=== PATIENT | female | born 1995 | race Caucasian/White ===

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

== ENCOUNTER 2017-03-31 15:29 | Emergency (ER) | payer BC ==
[~2017-03-31] VITALS: Ht 165.1 cm; Wt 74.0 kg
[2017-03-31 16:03] VITALS: TEMP 36.9; Ht 165.1 cm; Wt 74.0 kg
[2017-03-31] MEDS ORDERED: ALBU18002 INH (16:32)
[2017-03-31] MEDS ORDERED: IPRASOL4 INH (16:32)
[2017-03-31] MEDS ORDERED: BCPILLS PO (16:32)
[2017-03-31 17:24] LABS: ALBUMIN 4.1 gm/dl (3.4-5.0); CALCIUM 9.5 mg/dl (8.5-10.1); CREATININE 0.81 mg/dl (0.60-1.20); POTASSIUM 3.4 mmol/L (3.5-5.1)
[2017-03-31 17:27] LABS: TOTAL PROTEIN 8.4 gm/dl (6.4-8.2)
--- NOTE | 2017-03-31 17:44 | EMERGENCY ROOM VISIT NOTE ---
History First contact with patient: 16:13 Chief Complaint: ABDOMINAL PAIN Stated Complaint: POSSIBLE GALL STONE, LIGHTHEADDED Nursing Triage Summary: Patient presents to triage via wheelchair, states "My stomach is really hurting. I thought I was going to pass out today. I got blood work across the street just a little bit ago. I have been having issues for 2-3 weeks now. I was at Urgent Care and they started me on Zofran and Prilosec. Honey was concerned that I may be having gallbladder issues. I am scheduled for an ultrasound on Thursday." Patient admits to vomiting and nausea with the pain which comes and goes. History of Present Illness The patient is a 21 year old female who presents to the Emergency Room with complaints of right upper quadrant abdominal pain associated with nausea and vomiting for a few weeks. Patient states she has been unable to tolerate foods , but has been tolerating liquids okay. She went to [facility] on the , where she was diagnosed with a possible urinary tract infection. She states she received a phone call later on and was told that the culture was negative. She states at that time, she was started on Zofran and Prilosec for her symptoms , which she states did help a bit. Patient states despite these medications, she continues to vomit after eating. She was seen by her primary care provider today who recommended she have blood work and an ultrasound completed. She went to the lab, and became presyncopal when her labs were being drawn. At that time, she states she had some worsening right upper quadrant abdominal pain , and her father became concerned and did not want her waiting for Thursday to have the ultrasound performed. The patient's father states he told her she was coming here, as he felt that her symptoms are too bad to wait until the end of the week. The patient states her symptoms have been pretty consistent over the past 3-4 weeks, however they were severe today. The pain is worse with moving and food. She describes the pain as like a twisting sensation in her stomach. She denies any diarrhea, constipation, fever, recent illness, upper respiratory infection symptoms, cough, or other associated symptoms. The patient states her last menstrual period was February 16. She is on oral control pills, but is sexually active. She does have a history of irregular periods. Review of Systems A complete 10 point review of systems was reviewed with the patient with pertinent positives and negatives as per history of present illness. All else were negative. Past Medical/Surgical History None Social History Smoking Status: Never Smoker Current/Historical Medications Scheduled Control Pills ( Control Pills), 1 TAB PO DAILY Cephalexin Monohydrate (Keflex), 500 MG PO BID Scheduled PRN Albuterol Sulfate (Proair Respiclick), 1 PUFF INH DAILY PRN for SOB/Wheezing Ipratropium-Albuterol (Duoneb), 1 TREATMENT INH Q4H PRN for SOB/Wheezing Physical Exam Vital Signs Date Time Temp Pulse Resp B/P (MAP) Pulse Ox O2 Delivery O2 Flow Rate FiO2 03/31/17 16:54 61 18 118/74 100 Room Air 03/31/17 16:03 36.9 70 16 110/61 100 Room Air Physical Exam VITALS: Vitals are noted on the nurse's note and reviewed by myself. Vital signs stable. GENERAL: This is a 21-year-old female, in no acute distress, nondiaphoretic, well-developed well-nourished. SKIN: The skin was without rashes, erythema, edema, or bruising. There is no tenting of the skin. Capillary reflex less than 2 seconds. HEAD: Normocephalic atraumatic. EARS: External auditory canals clear, tympanic membranes pearly lopez without erythema or effusion bilaterally. EYES: Pupils equal round and reactive to light and accommodation. Conjunctivae without injection, sclerae without icterus. Extraocular movements intact. NOSE: Patent, turbinates without inflammation or discharge. No sinus tenderness. MOUTH: Mucous membranes moist. Tonsils are not enlarged. Pharynx without erythema or exudate. Uvula midline. Airway patent. Tongue does not deviate. NECK: Supple without nuchal rigidity. No lymphadenopathy. No thyromegaly. Cervical spine is nontender. No JVD. HEART: Regular rate and rhythm without murmurs gallops or rubs. LUNGS: Clear to auscultation bilaterally without wheezes, rales or rhonchi. No dullness to percussion. No retractions or accessory muscle use. ABDOMEN: Positive bowel sounds x 4. Normal tympanic percussion. Soft, without masses or organomegaly. White sign positive. The patient has guarding throughout examination. She does have some suprapubic tenderness. No rebound tenderness. No CVA tenderness bilaterally MUSCULOSKELETAL: No muscle atrophy, erythema, or edema noted. Full range of motion without joint tenderness in all extremities. No tenderness to palpation. Normal gait. Strength 5/5 throughout. NEURO: Patient was alert and oriented to person place and time. Normal sensation to light and sharp touch. Deep tendon reflexes 2+ throughout. No focal neurological deficits. Medical Decision & Procedures ER Provider Diagnostic Interpretation: ABDOMEN LIMITED (US) HISTORY: 21 years-old Female RUQ pain acute right upper quadrant abdominal pain COMPARISON: None available TECHNIQUE: Multiple real-time sonographic images of the abdominal right upper quadrant were obtained assessing grayscale appearance and color flow FINDINGS: Pancreas appears unremarkable. Distal body and tail obscured by bowel gas. There is a 1.5 x 1.0 x 0.7 cm echogenic lesion of the left hepatic lobe without internal vascularity identified. The liver is otherwise unremarkable. No intrahepatic biliary ductal dilation. Common bile duct is normal, 2 mm. Gallbladder is within normal limits without cholelithiasis, wall thickening or pericholecystic fluid. Imaged right kidney is unremarkable without hydronephrosis. IMPRESSION: 1. Unremarkable sonographic appearance of the gallbladder without cholelithiasis or sonographic evidence of acute cholecystitis. 2. No biliary ductal dilation. 3. 1.5 cm echogenic lesion of the left hepatic lobe is nonspecific however statistically favors a hepatic hemangioma. Laboratory Results 03/31/17 16:50 Red Blood Count 4.57, Mean Corpuscular Volume 85.1, Mean Corpuscular Hemoglobin 29.8, Mean Corpuscular Hemoglobin Concent 35.0, Mean Platelet Volume 10.6, Neutrophils (%) (Auto) 76.1, Lymphocytes (%) (Auto) 16.7, Monocytes (%) (Auto) 6.3, Eosinophils (%) (Auto) 0.6, Basophils (%) (Auto) 0.2, Neutrophils # (Auto) 7.74, Lymphocytes # (Auto) 1.70, Monocytes # (Auto) 0.64, Eosinophils # (Auto) 0.06, Basophils # (Auto) 0.02 03/31/17 16:50 Test 03/31/17 16:45 03/31/17 16:50 Urine Color DK YELLOW Urine Appearance CLOUDY (CLEAR) Urine pH 6.5 (4.5-7.5) Urine Specific [place] 1.028 (1.000-1.030) Urine Protein TRACE (NEG) Urine Glucose (UA) NEG (NEG) Urine Ketones 4+ (NEG) Urine Occult Blood 2+ (NEG) Urine Nitrite NEG (NEG) Urine Bilirubin NEG (NEG) Urine Urobilinogen NEG (NEG) Urine Leukocyte Esterase MODERATE (NEG) Urine WBC (Auto) >30 /hpf (0-5) Urine RBC (Auto) 0-4 /hpf (0-4) Urine Hyaline Casts (Auto) 5-10 /lpf (0-5) Urine Epithelial Cells (Auto) >30 /lpf (0-5) Urine Bacteria (Auto) 2+ (NEG) White Blood Count 10.17 K/uL (4.8-10.8) Red Blood Count 4.57 M/uL (4.2-5.4) Hemoglobin 13.6 g/dL (12.0-16.0) Hematocrit 38.9 % (37-47) Mean Corpuscular Volume 85.1 fL (80-100) Mean Corpuscular Hemoglobin 29.8 pg (25-34) Mean Corpuscular Hemoglobin Concent 35.0 g/dl (32-36) Platelet Count 287 K/uL (130-400) Mean Platelet Volume 10.6 fL (7.4-10.4) Neutrophils (%) (Auto) 76.1 % Lymphocytes (%) (Auto) 16.7 % Monocytes (%) (Auto) 6.3 % Eosinophils (%) (Auto) 0.6 % Basophils (%) (Auto) 0.2 % Neutrophils # (Auto) 7.74 K/uL (1.4-6.5) Lymphocytes # (Auto) 1.70 K/uL (1.2-3.4) Monocytes # (Auto) 0.64 K/uL (0.11-0.59) Eosinophils # (Auto) 0.06 K/uL (0-0.5) Basophils # (Auto) 0.02 K/uL (0-0.2) RDW Standard Deviation 44.0 fL (36.4-46.3) RDW Coefficient of Variation 14.2 % (11.5-14.5) Immature Granulocyte % (Auto) 0.1 % Immature Granulocyte # (Auto) 0.01 K/uL (0.00-0.02) Anion Gap 11.0 mmol/L (3-11) Est Creatinine Clear Calc Drug Dose 112.5 ml/min Estimated GFR () 122.0 Estimated GFR (Non- 105.3 BUN/Creatinine Ratio 8.7 (10-20) Calcium Level 9.5 mg/dl (8.5-10.1) Total Bilirubin 0.6 mg/dl (0.2-1) Aspartate Amino Transf (AST/SGOT) 10 U/L (15-37) Alanine Aminotransferase (ALT/SGPT) 18 U/L (12-78) Alkaline Phosphatase 65 U/L (45-117) Total Protein 8.4 gm/dl (6.4-8.2) Albumin 4.1 gm/dl (3.4-5.0) Globulin 4.3 gm/dl (2.5-4.0) Albumin/Globulin Ratio 1.0 (0.9-2) Lipase 97 U/L (73-393) Human Chorionic Gonadotropin, Quant 06788 mIU/mL ED Course The patient was seen and evaluated as above. IV access obtained, labs drawn. Urine test was performed and was positive. Quantitative hCG test ordered. Ultrasound of right upper quadrant ordered and performed. All results reviewed by myself. I did ask the patient's mother to privately speak with the patient to discuss results of testing. The patient's mother was escorted to the waiting area and B pod. I discussed the results with the patient at bedside. I discussed all follow-up information regarding the . The patient did request that I tell her mother of the urinary tract infection. I did tell her if this as I escorted her back to the room with the patient's permission. Discharge instructions are reviewed, the patient was discharged home in good condition. Medical Decision This is a 21-year-old female patient presents to the emergency department complaining of approximately 3 week long history of nausea with vomiting and right upper quadrant abdominal pain. The patient's last menstrual cycle was approximately 6 weeks ago. She does have history of irregular periods, but did miss her. 2 weeks ago. She is currently on control, and denies any use of antibiotics or missing any significant amounts of pills. She does have unprotected sex with one male partner. The patient's examination was overall negative for gallbladder disease. Her CBC was without leukocytosis, anemia, thrombocytopenia. Her urinalysis was suspicious for infection with positive blood, bacteria, and white blood cells. The patient did have 4+ positive ketones, which I suspect are related to some mild dehydration associated with the nausea with vomiting. CMP without hepatic, renal, or electrolyte abnormalities. Quantitative hCG was 49,000 which correlates with approximately 6 week . I suspect the patient's symptoms are related to the , and discussed that with her. She was in agreement with the assessment and plan and all questions were answered to her satisfaction. The patient is established with gynecology locally here, and was encouraged to follow-up. Etiologies such as , STD, ectopic , ovarian cyst, appendicitis , diverticulitis, obstruction, inflammatory bowel disease, renal colic, PUD, biliary pathology, pancreatitis, mesenteric ischemia, aortic pathology, infections, genitourinary, UTI, perforated viscus, as well as others were entertained. Medication Reconcilliation Current Medication List: was personally reviewed by me Blood Pressure Screening Patient's blood pressure: Normal blood pressure Impression Primary Impression: UTI (urinary tract infection) Additional Impressions: RUQ abdominal pain Nausea & vomiting Departure Information Dispostion Home / Self-Care Condition GOOD Prescriptions Cephalexin Monohydrate (Keflex) 500 Mg Cap 500 MG PO BID for 7 Days, #14 CAP Prov: Lorrie Klein PA-C 03/31/17 Referrals No Doctor, Assigned (PCP) [facility] Patient Instructions ED Preg Established Normal Sxs, ED Preg Morning Sickness, ED UTI Cystitis Female , My [facility] Additional Instructions You were seen and evaluated in the emergency department for abdominal pain, nausea, and vomiting. Ultrasound did reveal a small hypoechoic lesion on the liver, however I do not feel that this is related to your symptoms. The gallbladder appears normal, no other abnormalities noted. As discussed, lab workup did reveal signs of a urinary tract infection. You will be started on antibiotics for this. Cephalexin(Keflex) 500mg: Take one pill two times daily for 5 days for your UTI. All antibiotics can cause diarrhea. If this occurs and you feel worse or it does not resolve in 1-2 days follow up with your doctor or return to the Emergency Department as this could be signs of serious underlying problems. Any medication can cause an allergic reaction, stop the pills immediately and return to the ER for rash, hives, breathing difficulties, or swelling. Acetaminophen(Tylenol) may be used for fever or pain. Use 1000mg every six hours as needed. Avoid using more than 3000mg in a 24 hour period. Please follow-up with your primary care provider regarding ongoing management and care. Return to the ED for any worsening pain, blood in the urine, flank pain, fevers , intractable vomiting, or other concerning symptoms. While here in the ED, your test was positive. It appears you are likely around 6-8 weeks along. Please discontinue Prilosec and your control pills. You will need to start taking pre- vitamins. Do not take any NSAIDs such as ibuprofen, Advil, Motrin, Aleve, or naproxen due to . Please follow-up with your clearance rep/coating operator regarding ongoing management and care. Return to the ED for any significant vaginal bleeding, increased abdominal pain , intractable vomiting, fever, or other concerning symptoms. Problem Qualifiers Primary Impression: UTI (urinary tract infection) Urinary tract infection type: acute cystitis Hematuria presence: with hematuria Qualified Codes: N30.01 - Acute cystitis with hematuria Additional Impressions: Weeks of gestation: less than 8 weeks Qualified Codes: Z3A.01 - Less than 8 weeks gestation of Nausea & vomiting Vomiting type: unspecified Vomiting Intractability: non-intractable Qualified Codes: R11.2 - Nausea with vomiting, unspecified
[2017-03-31 17:53] LABS: BASO % 0.2 %; BASO ABS # 0.02 K/uL (0-0.2); EOS % 0.6 %; EOS ABS # 0.06 K/uL (0-0.5); HEMATOCRIT 38.9 % (37-47); HEMOGLOBIN 13.6 g/dL (12.0-16.0); IG# 0.01 K/uL (0.00-0.02); LYMPH % 16.7 %; MEAN CELL VOLUME 85.1 fL (80-100); MEAN CORPUSCULAR HEMOGLOBIN 29.8 pg (25-34); MEAN PLATELET VOLUME 10.6 fL (7.4-10.4); MONO % 6.3 %; MONO ABS # 0.64 K/uL (0.11-0.59); NEUT % 76.1 %; NEUT ABS # 7.74 K/uL (1.4-6.5); PLATELET COUNT 287 K/uL (130-400); RED CELL DISTRIBUTION WIDTH CV 14.2 % (11.5-14.5); WHITE BLOOD COUNT 10.17 K/uL (4.8-10.8)
--- NOTE | 2017-03-31 18:20 | DIAGNOSTIC IMAGING REPORT ---
ABDOMEN LIMITED (US) HISTORY: 21 years-old Female RUQ pain acute right upper quadrant abdominal pain COMPARISON: None available TECHNIQUE: Multiple real-time sonographic images of the abdominal right upper quadrant were obtained assessing grayscale appearance and color flow FINDINGS: Pancreas appears unremarkable. Distal body and tail obscured by bowel gas. There is a 1.5 x 1.0 x 0.7 cm echogenic lesion of the left hepatic lobe without internal vascularity identified. The liver is otherwise unremarkable. No intrahepatic biliary ductal dilation. Common bile duct is normal, 2 mm. Gallbladder is within normal limits without cholelithiasis, wall thickening or pericholecystic fluid. Imaged right kidney is unremarkable without hydronephrosis. IMPRESSION: 1. Unremarkable sonographic appearance of the gallbladder without cholelithiasis or sonographic evidence of acute cholecystitis. 2. No biliary ductal dilation. 3. 1.5 cm echogenic lesion of the left hepatic lobe is nonspecific however statistically favors a hepatic hemangioma. The above report was generated using voice recognition software. It may contain grammatical, syntax or spelling errors. Electronically signed by: Tato Watts M.D. 03/31/2017 6:19 PM Dictated Date/Time: 03/31/2017 6:17 PM
[2017-03-31] MEDS ORDERED: CEPH500C PO (18:54)
[2017-03-31 19:33] VITALS: BP 121/76; PULSE 68; O2SAT 98
== END 2017-03-31 19:30 | disposition home or self-care (01) ==
LOC: C.EDB 15:32
DX: N30.01 Acute cystitis with hematuria (principal); R11.2 Nausea with vomiting, unspecified; Z3A.01 Less than 8 weeks gestation of pregnancy

== ENCOUNTER → 2017-04-23 | Outpatient (CLI) | payer BC ==
[~2017-04-23] MED LIST changes: +ALBU18002 INH; -ALBUAER2 INH; +BCPILLS PO; +IPRASOL4 INH; -SNGCH5 PO
== END | disposition home or self-care (01) ==
LOC: C.LABSPEC 09:29
PROVIDERS: ATTEND Obstetrics & Gynecology
DX: Z34.01 Encounter for supervision of normal first pregnancy, first trimester (principal); Z3A.00 Weeks of gestation of pregnancy not specified

== ENCOUNTER 2021-09-17 07:38 | Inpatient (IN) ==
[2021-09-17] MEDS ORDERED: OXYTOCIN 30 UNITS/500 ML BAG IV PRN ×3 (07:42→17:52)
[2021-09-17 08:09] LABS: Hematocrit (blood only) 32.1 % (34.1-44.9); Hemoglobin 9.9 g/dl (12.0-16.0); Mean Corpuscular Hemoglobin 23.9 pg (25.0-34.0); Mean Corpuscular Hgb Conc 30.8 g/dL (32.0-36.0); Mean Corpuscular Volume 77.3 fL (80.0-100.0); Mean Platelet Volume 10.4 fL (9.4-12.3); Platelet Count 250 K/uL (130-400); RDW Coefficient of Variation 15.6 % (11.5-14.5); RDW Standard Deviation 43.3 fL (36.4-46.3); Red Blood Count 4.15 M/uL (3.93-5.22); White Blood Count 11.86 K/ul (4.8-10.8)
--- NOTE | 2021-09-17 08:14 | History & Physical Report ---
Date of Service September 17, 2021 Assessment & Plan (1) with 41 completed weeks gestation: (2) Encounter for induction of labor: Plan admit. fetus category one. cx favorable. pitocin induction, arom when indicated. anticipate . admit hgb 9.9. Admission and Anticipated Discharge Date Admission Date: September 17, 2021 History of Present Illness Chief Complaint: postdates induction Primary Care Provider: Preston Aldana DO Patient is a 26yowf with iup at41 0/7 weeks who presents to labor and delivery for postdates induction. Notes some cramping. no vb/lof. +fm. essentially uncomplicated. and Delivery Plans COIVD POSITIVE 08/13/21 HOME TEST, PCR 08/13 Positive (SX STARTED 08/10/21) covid vaccine x 3 had flu vaccine. asthma--with exacerbation in . OB Labs: Blood Type A Positive 01/30/21 Antibody Screen NEGATIVE 01/30/21 Hemoglobin 9.7 g/dL (12.0-16.0) L 06/19/21 Hematocrit 29.9 % (37-47) L 06/19/21 Mean Corpuscular Volume 87.5 fL (80-100) 01/30/21 Platelet Count 315 K/uL (130-400) 01/30/21 Rubella IgG Antibody Immune (Immune) 01/30/21 Rapid Plasma Reagin Nonreactive (Nonreactive) 01/30/21 Hepatitis B Surface Antigen Neg (Neg) 01/30/21 Hepatitis C Antibody Neg (Neg) 01/30/21 HIV (1&2) Ab and P24 Ag, 4th Gener Neg (Neg) 01/30/21 Glucose 1 Hour 50 gm Load 86 mg/dl (70-130) 06/19/21 OB Optional Labs: Chlamydia trachomatis RNA NOT DETECTED (NOT DETECTED) 01/30/21 Neisseria gonorrhoeae RNA NOT DETECTED (NOT DETECTED) 01/30/21 Thyroid Stimulating Hormone (TSH) 0.461 uIu/ml (0.300-4.500) 10/11/18 Labs Reviewed: cf/sma neg in 2018 low risk panorama--akh gbs negative Allergies Allergy/AdvReac Type Severity Reaction Status Date / Time Iodine and Iodide Containing Allergy swelling Verified 09/09/21 11:35 Produc Home Medications Medication Instructions Recorded Confirmed Type prenat.vits,deidre,[id number] 1 tab PO DAILY 01/15/21 09/09/21 History ferrous sulfate [Iron (ferrous PO 07/03/21 09/09/21 History sulfate)] breast pump #1 ea 07/29/21 09/09/21 Rx Patient History Medical History Asthma GERD (gastroesophageal reflux disease) History of menorrhagia History of varicella vaccination Spontaneous vaginal delivery Surgical History S/P wisdom tooth extraction Family History Father Asthma Hypertension Dyslipidemia Family/Other Breast cancer Aunt Clotting disorder Endometriosis Grandfather (Maternal) Diabetes Hypertension Dyslipidemia Grandmother (Maternal) Diabetes History of kidney stones Thyroid disease Mother Thyroid disease Denies family history of Ovarian cancer Prostate cancer Colorectal cancer Uterine cancer Social History Smoking Status: Never smoker Second Hand Exposure: No; Do You Dip or Chew Tobacco: Yes; Tobacco Cessation Education Requested by Patient: No Hx Alcohol Use: No Hx Substance Use: No Preferred Language: Sami Communication Ability: Effective Pickers Material Handlers Required: No Beliefs That Will Affect Care: None marital status: Single marital status details: lisa Cazares (25) [phone] Current Living Situation: Significant Other Current Living Situation Comment: Mirlande, Son 3y/o current occupational status: employed 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 Date GA wks Lbr Lgth wt Sex Type del Anes Place Del Prov ? Comment 11/14/17 39 9-2 M Epidural [facility] Dr. Can No TRAIN CONTROLLER History noncontributory Physical Exam Constitutional: WD/WN, vitals as above Gastrointestinal (Abdomen): soft, gravid, nt Psychiatric: A+Ox3, euthymic affect Genitourinary: cx--4/80/-2/mid/soft toco--irritability efm--140s with mod variability, accels to 160s, no decels Results & Data ([facility]) Vital Signs (Past 12 Hours) Vital Signs Temp Pulse Resp BP 09/17/21 08:04 93 H 121/73 09/17/21 08:00 36.7 C 18 Coding Level of Care Code None Diagnoses with 41 completed weeks gestation Z3A.41 Encounter for induction of labor Z34.90
[2021-09-17] MEDS: LACTATED RINGER'S 1,000 ML IV PRN ×2 (08:48→14:46)
[2021-09-17] MEDS ORDERED: CALCIUM CARBONATE 500 MG CHEWABLE TAB PO PRN (09:58)
--- NOTE | 2021-09-17 13:16 | Anesthesiology Consultation ---
Date of Service September 17, 2021 Assessment & Plan (1) Encounter for pre-operative examination: Chart Review Chart Review: Acceptable Risk for Labor Epidural History Height/Weight Height: 5 ft 5 in Weight: 97.522 kg Allergies Allergy/AdvReac Type Severity Reaction Status Date / Time Iodine and Iodide Containing Allergy swelling Verified 09/17/21 09:18 Produc Medications Home Medications Medication Instructions Recorded Confirmed Last Taken prenat.vits,deidre,[id number] 1 tab PO DAILY 01/15/21 09/17/21 09/16/21 08:00 ferrous sulfate [Iron (ferrous PO 07/03/21 09/09/21 09/16/21 08:00 sulfate)] breast pump #1 ea 07/29/21 09/09/21 Unknown Active Medications Generic Name Dose Route Start Last Admin Trade Name Freq PRN Reason Stop Dose Admin Lactated Ringer's 1,000 mls @ 125 mls/hr 09/17/21 07:42 09/17/21 08:48 Lr IV 09/19/21 07:41 125 mls/hr .Q8H PRN Administration L&D Protocol Protocol Oxytocin 30 units in 500 mls @ 16 mls/hr 09/17/21 07:44 09/17/21 12:30 Pitocin IV 09/19/21 07:43 0.96 units/hr .Q24H PRN 16 mls/hr Labor Induction/Augmentation Titration Protocol 0.96 UNITS/HR Past Medical History Medical History Asthma GERD (gastroesophageal reflux disease) History of menorrhagia History of varicella vaccination Spontaneous vaginal delivery Past Family History Family History Father Asthma Hypertension Dyslipidemia Family/Other Breast cancer maternal great grandmother Aunt Clotting disorder maternal Endometriosis maternal Grandfather (Maternal) Diabetes Hypertension Dyslipidemia Grandmother (Maternal) Diabetes History of kidney stones Thyroid disease Mother Thyroid disease Denies family history of Ovarian cancer Prostate cancer Colorectal cancer Uterine cancer Past Surgical History Surgical History S/P wisdom tooth extraction Social History Smoking Status: Never smoker Do You Dip or Chew Tobacco: Yes Hx Alcohol Use: No Hx Substance Use: No substance use type: does not use Physical Exam Vital Signs Last Vital Signs Temp 36.7 C 09/17/21 12:01 Pulse 80 09/17/21 12:51 Resp 16 09/17/21 12:01 BP 132/63 09/17/21 12:51 Testing Laboratory Results 09/17/21 07:53 Blood Type A Positive 09/17/21 07:53 Antibody Screen NEGATIVE 09/17/21 07:53
[2021-09-17] MEDS ORDERED: LIDOCAINE 2%/EPINEPHRINE 1:200,000 20 ML SDV ONE (14:32)
[2021-09-17] MEDS ORDERED: BUPIVACAINE 0.25% 30 ML VIAL ONE (14:32)
[2021-09-17] MEDS ORDERED: fentaNYL citrate 100 MCG/2 ML VIAL ONE (14:32)
[2021-09-17] MEDS ORDERED: SODIUM CHLORIDE 0.9% INJ 10 ML VIAL ONE (14:32)
[2021-09-17] MEDS ORDERED: ePHEDrine sulfate 50 MG/ML AMP ONE (14:32)
[2021-09-17] MEDS ORDERED: fentaNYL 2MCG/ML ROPIVACAINE 1.25MG/ML 100 ML BAG EPI ONE (14:33)
[2021-09-17] MEDS ORDERED: ePHEDrine sulfate 50 MG/ML AMP IV PRN (15:05)
[2021-09-17] MEDS ORDERED: NALOXONE HCL 0.4 MG/1 ML VIAL/CARP IV PRN (15:05)
[2021-09-17] MEDS ORDERED: ONDANSETRON INJ 2 MG/ML 2 ML VIAL IV PRN (15:05)
[2021-09-17] MEDS ORDERED: fentaNYL 2MCG/ML ROPIVACAINE 1.25MG/ML 100 ML BAG EPI PRN (15:05)
[2021-09-17] MEDS ORDERED: NALOXONE HCL 1 MG in SODIUM CHLORIDE 0.9% 1000ML 1,000 ML IV PRN (15:05)
--- NOTE | 2021-09-17 17:50 | Delivery Summary ---
Vaginal Delivery Summary Date of Service September 17, 2021 Vaginal Delivery Summary Patient induced after 39 weeks with a cervical Manriquez and Pitocin requested ruptured membranes which was performed an epidural patient then rapidly progressed to fully dilated with clear fluid pushed over a total of 2 contractions baby in occiput anterior position once head was delivered mouth and then nares were suctioned with bulb gentle traction no excessive force live vigorous female infant cord clamped and cut cord blood obtained placenta removed with gentle traction IV Pitocin started uterine tone adequate very small first- degree tear repaired with 1 simple suture of 3-0 Vicryl sponge instrument counts correct estimated blood loss 200 mL
[2021-09-17] MEDS ORDERED: oxyCODONE/ACETAMINOPHEN 5mg/325mg TAB PO PRN (17:52)
[2021-09-17] MEDS ORDERED: BENZOCAINE 20% AER SPR 82.5 GM CAN EXT PRN (17:52)
[2021-09-17] MEDS ORDERED: bisacodyL 10 MG SUPP PR PRN (17:52)
[2021-09-17] MEDS ORDERED: HYDROCORTISONE ACETATE 25 MG SUPP PR PRN (17:52)
[2021-09-17] MEDS ORDERED: DIPHTHERIA/TETANUS/PERTUSSIS 0.5 ML SYR/VIAL IM ONE (17:52)
[2021-09-17] MEDS ORDERED: ACETAMINOPHEN 325 MG TAB PO PRN (17:52)
--- NOTE | 2021-09-17 18:43 | Anesthesia Procedure Note ---
Date of Service September 17, 2021 Anesthesia Post Epidural Note Vital Signs Vital Signs: Temp Pulse Resp BP Pulse Ox 36.5 C 90 16 115/55 L 94 09/17/21 18:00 09/17/21 18:35 09/17/21 18:30 09/17/21 18:35 09/17/21 17:39 Notes Mental Status: alert / awake / arousable and participated in evaluation Nausea / Vomiting: adequately controlled Pain: adequately controlled Airway Patency, RR, SpO2: stable & adequate BP & HR: stable & adequate Hydration State: stable & adequate Neuraxial Anesthesia: was administered and sensory block is resolving Anesthetic Complications: no major complications apparent Epidural: Removed without complications and With tip intact
[2021-09-17] MEDS: DOCUSATE SODIUM 100 MG CAP PO SCH (21:15)
[2021-09-17] MEDS: IBUPROFEN 600 MG TAB PO PRN (22:25)
[2021-09-18] MEDS: IBUPROFEN 600 MG TAB PO PRN ×4 (02:38→18:37)
[2021-09-18 06:01] LABS: Hematocrit (blood only) 27.3 % (34.1-44.9); Hemoglobin 8.3 g/dl (12.0-16.0); Mean Corpuscular Hemoglobin 24.1 pg (25.0-34.0); Mean Corpuscular Hgb Conc 30.4 g/dL (32.0-36.0); Mean Corpuscular Volume 79.1 fL (80.0-100.0); Mean Platelet Volume 10.2 fL (9.4-12.3); Platelet Count 194 K/uL (130-400); RDW Coefficient of Variation 15.6 % (11.5-14.5); RDW Standard Deviation 44.3 fL (36.4-46.3); Red Blood Count 3.45 M/uL (3.93-5.22); White Blood Count 13.11 K/ul (4.8-10.8)
--- NOTE | 2021-09-18 06:39 | Obstetrical Progress Note ---
Date of Service <Corinne Sy DO - Last Filed: 09/18/21 06:39> September 18, 2021 Assessment & Plan <Corinne Sy DO - Last Filed: 09/18/21 06:39> (1) state: Patient is PPD 1 s/p and doing well. - Eating well, voiding well, ambulating well - Vitals reviewed and within normal limits - Pain well controlled with ibuprofen 600 mg Q4H PRN - OOB, ambulation, diet progression as tolerated - Blood type: A+, GBS neg, rubella immune - Plan to discharge later today - After discharge, 6 [address] up with [address] Guerrero <Lillian Guerrero MD, FACOG - Last Filed: 09/18/21 07:39> (1) state: Subjective <Corinne Little Sy DO - Last Filed: 09/18/21 06:39> Sudha Pope is a 26 yo female who is now PPD #1 following spontaneous vaginal delivery at 41 weeks. Reports feeling well this morning. She endorses abdominal cramping and 4/10 pain well managed on analgesics and a heating pad. Voiding well. Tolerating regular meals overnight and able to ambulate some. She has passed gas but no bowel movements. Persistent lochia with some improvement this morning. Currently breast feeding. Review of Systems Denies fever, chills, sweats. Denies SOB, difficulty breathing, chest pain, palpitations, and chest pressure. Denies breast pain. Denies dysuria. Denies headache or changes in vision. Physical Exam <Corinne Sy DO - Last Filed: 09/18/21 06:39> General: Alert and oriented. No acute distress. CV: Regular rate and rhythm. No murmurs. Respiratory: CTA bilaterally. No rhonchi, wheezes, or crackles. No increased wor k of breathing. Abdomen: Positive bowel sounds. Soft, nontender, non distended. Uterus: Fundus firm and palpable 2 cm below the umbilicus. Lower extremities: No LE edema. No deep calf pain. Gissell's negative bilaterally. Results & Data ([facility]) <Corinne Sy DO - Last Filed: 09/18/21 06:39> Vital Signs (Past 12 Hours) Vital Signs Temp Pulse Pulse Resp BP BP Pulse Ox 09/18/21 03:12 36.6 C 69 18 116/65 96 09/18/21 00:00 36.8 C 78 16 96/57 L 97 09/17/21 20:00 36.8 C 18 09/17/21 19:30 20 09/17/21 19:00 20 09/17/21 18:45 16 09/17/21 20:06 93 H 126/54 L 09/17/21 19:35 87 112/56 L 09/17/21 19:04 79 108/53 L 09/17/21 18:49 103 H 119/65 O2 Del Method 09/18/21 03:12 09/18/21 00:00 Room Air 09/17/21 20:00 09/17/21 19:30 09/17/21 19:00 09/17/21 18:45 09/17/21 20:06 09/17/21 19:35 09/17/21 19:04 09/17/21 18:49 <Lillian Guerrero MD, FACOG - Last Filed: 09/18/21 07:39> Co-Signing Physician Notes Resident Physician Supervision Note: I was present with Dr. [Name of resident] during the history and exam. I discussed the case with the resident and agree with the findings and plan as documented in the note. Any exceptions or clarifications are listed here: [None] Documented By: Lillian Guerrero MD, FACOG Resident Activity Tracking <Corinne Sy DO - Last Filed: 09/18/21 06:39> Resident Involvement: Resident Care Provided Care Provided: OB Delivery
[2021-09-18] MEDS ORDERED: PRENATAL VITAMIN 1 TAB PO SCH (08:00)
[2021-09-18] MEDS: DOCUSATE SODIUM 100 MG CAP PO SCH (08:24)
[2021-09-18] MEDS ORDERED: bisacodyL 5 MG TABEC PO SCH (20:00)
== END 2021-09-18 19:45 | disposition home or self-care (01) | DRG 807 ==
LOC: 4S1 07:38 → 4E2 20:46